=== PATIENT | male | born 1950 | race Two or more races ===

== ENCOUNTER 2017-07-31 12:12 | Emergency (ER) | payer OTHER, MEDICAID ==
[2017-07-31 15:18] VITALS: BP 130/92
[2017-07-31] MEDS ORDERED: HYDROcodone-ACET 10/325MG TAB PO ONE (15:30)
[2017-07-31] MEDS ORDERED: KETOROLAC TROMETH 60MG/2ML VIAL IM ONE (15:30)
[2017-07-31] MEDS ORDERED: BACITRACIN TOP OINT 1 UD PKG TOP ONE (15:30)
[2017-07-31] MEDS ORDERED: LIDOCAINE 1% (LOCAL ANESTH.) PF 5ml SDV ID ONE (15:30)
== END 2017-07-31 16:36 | disposition home or self-care (01) ==
LOC: ER 12:12
DX: S41.112A Laceration without foreign body of left upper arm, initial encounter (principal); M54.5 Low back pain; W45.8XXA Other foreign body or object entering through skin, initial encounter; Y93.89 Activity, other specified; Y99.8 Other external cause status; Y92.89 Other specified places as the place of occurrence of the external cause
CPT/HCPCS: 12001; 72100; 93005; 96372; 99284; J1885